=== PATIENT | female | born 1980 | race African-American/Black ===

== ENCOUNTER 2023-02-12 13:42 | Outpatient (CLI) | payer OTHER | END 2023-02-12 13:43 | disposition home or self-care (01) | LOC: BICRAD 13:42 | PROVIDERS: ATTEND Preventive Medicine Occupational Medicine | DX: Z02.71 Encounter for disability determination (principal); M51.16 Intervertebral disc disorders with radiculopathy, lumbar region; M47.26 Other spondylosis with radiculopathy, lumbar region | CPT/HCPCS: 72100 ==